=== PATIENT | female | born 1975 | race Caucasian/White ===

== ENCOUNTER 2020-11-28 12:00 | Outpatient (CLI) | payer BC, MEDICAID, SELFPAY | END 2020-11-28 12:01 | disposition home or self-care (01) | LOC: SLEEP 11-29 12:09 | PROVIDERS: PCP Family Medicine; Visit Provider Nurse Practitioner Family | DX: G47.10 Hypersomnia, unspecified (principal) | CPT/HCPCS: G0399 ==

== ENCOUNTER 2020-12-28 11:48 | Outpatient (CLI) | payer BC, MEDICAID, SELFPAY ==
--- NOTE | 2020-12-28 12:06 | XRR_ITS ---
PROCEDURE INFORMATION: Exam: XR Lumbosacral Spine, 4 or 5 Views Exam date and time: 12/28/2020 12:56 PM Age: 45 years old Clinical indication: Pain and injury or trauma; Other: Snow sledding; Blunt trauma (contusions or hematomas); Low back pain; Injury date: 12/26; Injury details: Thrown off sled; Prior surgery; Surgery type: Csection; Additional info: Lower back pain TECHNIQUE: Imaging protocol: XR of the lumbosacral spine, 4 or 5 views. COMPARISON: CR Lumbar Spine 2-3 views* [id number] 10/18/2017 4:39 PM FINDINGS: Bones/joints: Schmorl's nodes and marginal osteophytes. No acute bony injury or malalignment in the visualized lumbar spine. Gastrointestinal tract: Prominent stool. Organs: Tubal ligation. XR/XR lumbar spine min 4V [id number] IMPRESSION: No acute bony injury or malalignment in the visualized lumbar spine.
--- NOTE | 2020-12-28 12:07 | XRR_ITS ---
PROCEDURE INFORMATION: Exam: XR Sacrum and Coccyx, 2 or More Views Exam date and time: 12/28/2020 12:56 PM Age: 45 years old Clinical indication: Pain and injury or trauma; Other: Snow sledding; Blunt trauma (contusions or hematomas); Lumbago; Injury date: 12/26; Injury details: Thrown off sled; Prior surgery; Surgery type: Csection; Additional info: Lower back pain TECHNIQUE: Imaging protocol: XR of the sacrum and coccyx, 2 or more views. COMPARISON: No relevant prior studies available. FINDINGS: Bones/joints: No acute bony injury or malalignment. Intraperitoneal space: Punctate pelvic calcifications, presumably vascular in etiology. Organs: Tubal ligation. XR/XR sacrum coccyx min 2V 18800 IMPRESSION: No acute bony injury or malalignment.
== END 2020-12-28 11:49 | disposition home or self-care (01) ==
PROVIDERS: PCP Internal Medicine; Visit Provider Nurse Practitioner Family
DX: R58 Hemorrhage, not elsewhere classified (principal); M54.5 Low back pain
CPT/HCPCS: 72110; 72220

== ENCOUNTER 2021-12-21 05:33 | Emergency (ER) | payer BC, MEDICAID, SELFPAY ==
[2021-12-21 05:43] VITALS: BP 160/96; PULSE 90; RESP 18; TEMP 36.8; O2SAT 99; BMI 22.8
--- NOTE | 2021-12-21 06:09 | ED_ITS ---
HPI - General Adult General: Chief complaint: General Medical Stated complaint: High Blood Pressure Time Seen by Provider: 12/21/21 06:00 Source: patient Mode of arrival: ambulatory Limitations: no limitations History of Present Illness: 46-year-old female presents to the emergency room with complaints of elevated blood pressure. Given monitoring of blood pressure evidently she was given hydroxyzine to take as needed for blood pressure issues also has been treated for anxiety with anxiety. She been told to take hydroxyzine her blood pressure is high she had some conflict within her family last night evidently the police were involved with her blood pressure went up she gets blood pressure readings 190s at home an acquaintance encouraged her to come to the ER because of her elevated blood pressure. She is not having any significant chest discomfort she does have a little bit of a headache no difficulty speech swallowing states her vision is somewhat blurry. Onset (ago): hour(s) Severity: mild Relieving factors: none Exacerbating factors: none Associated symptoms: Deny chest pain, confusion, cough, diaphoresis, decreased appetite, dyspnea, fevers/chills, headache(s), malaise, nausea, rash, palpitations, seizures, short of breath, syncope, vomiting or weakness Treatments prior to arrival: none Review of Systems Const: Denies: malaise or diaphoresis ENMT: Denies: throat pain, ear or mastoid pain, nasal discharge or nasal congestion Card: Denies: chest pain, palpitations or syncope Resp: Denies: dyspnea GI: Denies: nausea or vomiting : Denies: flank pain, difficulty voiding, dysuria, urinary frequency or urinary urgency Skin/Breast: Denies: rash Neuro: Denies: headache(s) or confusion [facility] ED PFSH: Medical History (Updated 12/21/21 @ 07:11 by Catrachito Nieves DO) Anxiety Depression Hypertension Social History Smoking and tobacco status: current every day smoker Alcohol intake: current Physical Exam Const: COMMON NORMALS: no acute distress GENERAL APPEARANCE: cooperative and comfortable ORIENTATION/CONSCIOUSNESS: Yes awake, Yes oriented to person, Yes oriented to place and Yes oriented to time HENMT: COMMON NORMALS: normocephalic, atraumatic and hearing grossly normal bilaterally HEAD & SCALP: normocephalic and atraumatic Neck/C-Spine: COMMON NORMALS: no JVD Resp: COMMON NORMALS: normal respiratory effort, No retractions, No use of accessory muscles and clear to auscultation bilaterally AUSCULTATION: clear to auscultation bilaterally Cardio: COMMON NORMALS: no JVD, regular rate, regular rhythm and No murmurs present (Cardio) RATE: regular rate RHYTHM: regular rhythm GI: COMMON NORMALS: Soft to palpation and No hepatosplenomegaly present AUSCULTATION: Yes normoactive bowel sounds PALPATION: Yes Soft to palpation, No Tenderness to palpation present (GI), No Guarding due to palpation present (GI) and Yes No hepatosplenomegaly present Extremity: COMMON NORMALS: normal to inspection, capillary refill normal, no clubbing, cyanosis or edema, no calf tenderness and no pedal edema Neuro: SENSORIUM/ORIENTATION: Yes oriented to person, Yes oriented to place and Yes oriented to time Skin: COMMON NORMALS: no rashes or lesions noted GENERAL SKIN EXAM: no karen hes or lesions noted Course Vital Signs: Vital signs: Vital Signs Temperature 98.3 F 12/21/21 05:43 Pulse Rate 79 12/21/21 07:21 Respiratory Rate 16 12/21/21 07:21 Blood Pressure 164/112 12/21/21 07:21 Pulse Oximetry 99 12/21/21 07:21 [facility] - General Adult Medical Decision Making Patient has no signs of endorgan injury parent is doing well at this time continue the hydrochlorothiazide that she was given and also add amlodipine. On her medicine list [place] hydroxyzine however she did show me a prescription bottle of hydrochlorothiazide that she had been started on recently. Follow-up with your primary care doctor within the next week to reevaluate blood pressure. Medical Records I reviewed the patient's medical records. Lab Data I reviewed the patient's lab results. : 12/21/21 06:31 12/21/21 06:31 Laboratory Results WBC 10.4 10^3/uL (4.0-10.0) H 12/21/21 06:31 RBC 5.31 10^6/uL (4.1-5.3) H 12/21/21 06:31 Hgb 13.1 g/dL (11.5-15.3) 12/21/21 06:31 Hct 41.1 % (37.0-47.0) 12/21/21 06:31 MCV 77.4 fl (81-99) L 12/21/21 06:31 MCH 24.7 pg (28.0-34.0) L 12/21/21 06:31 MCHC 31.9 g/dL (30.0-36.0) 12/21/21 06:31 RDW 21.2 % (12.1-15.1) H 12/21/21 06:31 Plt Count 438 10^3/cmm (130-400) H 12/21/21 06:31 MPV 8.8 fL (7.4-10.4) 12/21/21 06:31 Neut % (Auto) 55.9 % 12/21/21 06:31 Lymph % (Auto) 31.7 % 12/21/21 06:31 Mitchell % (Auto) 9.6 % 12/21/21 06:31 Eos % (Auto) 1.7 % 12/21/21 06:31 Baso % (Auto) 0.8 % 12/21/21 06:31 Neut # (Auto) 5.81 10^3/uL (1.8-7.7) 12/21/21 06:31 Lymph # (Auto) 3.3 10^3/uL (0.8-4.8) 12/21/21 06:31 Mitchell # (Auto) 1.0 10^3/uL (0.2-0.9) H 12/21/21 06:31 Eos # (Auto) 0.2 10^3/uL (0.0-0.8) 12/21/21 06:31 Baso # (Auto) 0.1 10^3/uL (0.0-0.1) 12/21/21 06:31 Nucleated RBC % (auto) 0 % 12/21/21 06:31 Nucleated RBCs # 0.0 /100WBC 12/21/21 06:31 Sodium 136 mmol/L (136-145) 12/21/21 06:31 Potassium 3.9 mmol/L (3.5-5.1) 12/21/21 06:31 Chloride 99 mmol/L (98-107) 12/21/21 06:31 Carbon Dioxide 26 mmol/L (22-29) 12/21/21 06:31 Anion Gap 14.9 (5-19) 12/21/21 06:31 BUN 11 mg/dL (6-20) 12/21/21 06:31 Creatinine 0.6 mg/dL (0.5-0.9) 12/21/21 06:31 GFR Calculation 107.6 mL/min (90-130) 12/21/21 06:31 Glucose 88 mg/dL (65-115) 12/21/21 06:31 Calculated Osmolality 281 mOsm/kg (285-295) L 12/21/21 06:31 Calcium 9.2 mg/dL (8.5-10.5) 12/21/21 06:31 Total Bilirubin 0.3 mg/dL (0.15-1.2) 12/21/21 06:31 AST 33 U/L (0-32) H 12/21/21 06:31 ALT 31 U/L (0-33) 12/21/21 06:31 Alkaline Phosphatase 104 IU/L (35-105) 12/21/21 06:31 Total Protein 8.1 g/dL (6.6-8.7) 12/21/21 06:31 Albumin 4.6 g/dL (3.5-5.2) 12/21/21 06:31 Globulin 3.5 g/dL (1.3-4.6) 12/21/21 06:31 Discharge Plan Discharge Patient Disposition: Home Clinical Impression: Hypertension Condition: Stable Prescriptions: New amlodipine 5 mg tablet 5 mg PO DAILY Qty: 30 0RF No Action cefdinir 300 mg capsule 300 mg PO BID 7 Days Qty: 14 0RF ciprofloxacin-dexamethasone [Ciprodex] 0.3-0.1 % drops,suspension 4 drp otic (ear) BID 7 Days Qty: 7.5 0RF hydroxyzine HCl 50 mg tablet 50 mg PO DAILY 0RF Discharge Orders: Discharge ED (Routine); Ordered 12/21/21 Ordered By: Catrachito Nieves Referrals: Areli Avendaño DO [Primary Care Provider] - Discharge Diet: Usual diet Discharge Activity: Limit activity as instructed Patient Instructions: Opioid Safety Activity Restrictions/Additional Instructions: Avoid stimulants alcohol caffeine decongestants. Follow-up with your primary care doctor to reevaluate blood pressure next week. Start the amlodipine 5 mg once daily. Coding Level of Care Code ED Fire Protection Engineering Technician for Chg Fwd Exam Comprehensive
--- NOTE | 2021-12-21 06:10 | ECG_ITS ---
[facility] Test Date: 2021-12-21 Pat Name: Caren Ellis Department: Room: Gender: Female [employer] Department Manager: : 1975 Requested By: Catrachito Guillermo Order Number: [id number] Franklin MD: INGRID SANCHEZ Measurements Intervals [place] Rate: 83 P: 50 IN: 159 QRS: 14 QRSD: 92 T: 19 QT: 402 QTc: 475 Interpretive Statements SINUS RHYTHM POSSIBLE LEFT ATRIAL ENLARGEMENT [-0.1mV P-WAVE IN V1/V2] POSSIBLE RIGHT VENTRICULAR CONDUCTION DELAY [RSR (QR) IN V1/V2] MODERATE T-WAVE ABNORMALITY, CONSIDER ANTERIOR ISCHEMIA [-0.1+ mV T-WAVE IN V3/V4] No previous ECG available for comparison Electronically Signed On 12-21-2021 22:55:22 SENIOR ADMINISTRATOR SUPPORT by INGRID SANCEHZ [email or web address] medical [email or web address], [id number]
[2021-12-21 06:40] LABS: Basophils # 0.1 10^3/uL (0.0-0.1); Basophils % 0.8 %; Eosinophils # 0.2 10^3/uL (0.0-0.8); Eosinophils % 1.7 %; Hematocrit 41.1 % (37.0-47.0); Hemoglobin 13.1 g/dL (11.5-15.3); Lymphocytes # 3.3 10^3/uL (0.8-4.8); Lymphocytes % 31.7 %; Mean Corpuscular HGB Conc 31.9 g/dL (30.0-36.0); Mean Corpuscular Hemoglobin 24.7 pg (28.0-34.0); Mean Corpuscular Volume 77.4 fl (81-99); Mean Platelet Volume 8.8 fL (7.4-10.4); Monocytes % 9.6 %; Neutrophils # 5.81 10^3/uL (1.8-7.7); Neutrophils % 55.9 %; Nucleated Red Blood Cells % 0 %; Platelet Count 438 10^3/cmm (130-400); Red Blood Count 5.31 10^6/uL (4.1-5.3); Red Cell Distribution Width 21.2 % (12.1-15.1); White Blood Count 10.4 10^3/uL (4.0-10.0)
[2021-12-21] MEDS: hyDRALAzine 20 mg/mL INJ 1 mL 10 MG IM (06:55)
[2021-12-21] MEDS: amlodipine 5 mg Tablet PO (06:55)
[2021-12-21 07:00] LABS: Alanine Aminotransferase 31 U/L (0-33); Albumin Level 4.6 g/dL (3.5-5.2); Alkaline Phosphatase 104 IU/L (35-105); Anion Gap 14.9 (5-19); Aspartate Amino Transferase 33 U/L (0-32); Blood Urea Nitrogen 11 mg/dL (6-20); Calcium 9.2 mg/dL (8.5-10.5); Carbon Dioxide 26 mmol/L (22-29); Chloride 99 mmol/L (98-107); Globulin 3.5 g/dL (1.3-4.6); Glomerular Filtration Rate 107.6 mL/min (90-130); Glucose 88 mg/dL (65-115); Osmolality Calculated 281 mOsm/kg (285-295); Potassium 3.9 mmol/L (3.5-5.1); Sodium 136 mmol/L (136-145); Total Bilirubin 0.3 mg/dL (0.15-1.2); Total Protein 8.1 g/dL (6.6-8.7)
[2021-12-21 07:21] VITALS: BP 164/112; PULSE 79; RESP 16; O2SAT 99
== END 2021-12-21 07:23 | disposition home or self-care (01) ==
PROVIDERS: Emergency Provider Family Medicine; PCP Internal Medicine
DX: I10 Essential (primary) hypertension (principal); F17.210 Nicotine dependence, cigarettes, uncomplicated
CPT/HCPCS: 80053; 85025; 93005; 96372; 99283; J0360

== ENCOUNTER 2022-01-29 06:00 | Outpatient (RCR) | payer BC, MEDICAID, SELFPAY | END 2022-02-07 23:59 | disposition home or self-care (01) | LOC: SPT 06:00 | PROVIDERS: PCP Internal Medicine; Referring Provider Family Medicine; Visit Provider Family Medicine | DX: M54.50 Low back pain, unspecified (principal); I10 Essential (primary) hypertension | CPT/HCPCS: 97110; 97161; G0283 ==

== ENCOUNTER 2022-02-08 06:00 | Outpatient (RCR) | payer BC, MEDICAID, SELFPAY | END 2022-03-04 12:11 | disposition home or self-care (01) | LOC: SPT 06:00 | PROVIDERS: PCP Internal Medicine; Referring Provider Family Medicine; Visit Provider Family Medicine | DX: M54.50 Low back pain, unspecified (principal); W19.XXXD Unspecified fall, subsequent encounter | CPT/HCPCS: 97110; G0283 ==

== ENCOUNTER 2022-08-14 04:04 | Emergency (ER) | payer MEDICAID, SELFPAY ==
[2022-08-14 04:10] VITALS: BP 133/97; PULSE 119; RESP 18; TEMP 36.8; O2SAT 98; BMI 23.0
--- NOTE | 2022-08-14 04:15 | XRR_ITS ---
PROCEDURE INFORMATION: Exam: XR Left Shoulder Exam date and time: 08/14/2022 4:17 AM Age: 47 years old Clinical indication: Injury or trauma; Blunt trauma (contusions or hematomas); Patient HX: C/O left shoulder pain post fall this a. M. TECHNIQUE: Imaging protocol: Radiologic exam of the Left shoulder. Views: 2 or more views. COMPARISON: CR XR cervical spine 3V* [id number] 10/18/2017 4:39 PM FINDINGS: Bones/joints: There is a comminuted fracture of the left humeral neck with avulsion of the greater tuberosity. There is about 5 mm of displacement. Soft tissues: Normal. XR/XR shoulder LT min 2V* [id number] IMPRESSION: Comminuted mildly displaced fracture of the humeral neck.
--- NOTE | 2022-08-14 04:24 | W.ED.FALL ---
HPI - Fall General: Chief Complaint: Fall Stated Complaint: Injury Left Shoulders Time Seen by Provider: 08/14/22 04:09 Source: patient Mode of arrival: ambulatory Limitations: no limitations History of Present Illness: 47-year-old female who states that she tripped and fell the night over a box. States she landed right on her left shoulder she had left arm pain since then she has not any makeshift sling currently denies any other injuries denies hitting her head denies any neck pain. Associated symptoms-after fall: Denies abdominal pain, chest pain or headache(s) Review of Systems Const: Denies: fever(s), chills, body aches or change in appetite Eyes: Denies: blurry vision or eye discomfort ENMT: Denies: throat pain or dental pain Card: Denies: chest pain Resp: Denies: dyspnea GI: Denies: abdominal pain, nausea, vomiting or diarrhea : Denies: dysuria Musc: Reports: extremity pain Skin/Breast: Denies: rash Neuro: Denies: headache(s) Psych: Denies: depression Jamie/Lymph: Denies: easy bruising All/Imm: Denies: urticaria PFS ED PFSH: Medical History Allergic rhinitis due to allergen Anxiety Depression Hypertension Smokers' cough Social History Smoking and tobacco status: current every day smoker Alcohol intake: current Female Reproductive History: Date of last menstrual period: 08/01/22 Physical Exam Const: COMMON NORMALS: no acute distress, patient oriented x3 and healthy appearing HENMT: COMMON NORMALS: normocephalic and atraumatic HEAD & SCALP: normocephalic and atraumatic Eye: COMMON NORMALS: conjunctivae normal CONJUNCTIVA: Yes conjunctivae normal Neck/C-Spine: COMMON NORMALS: full ROM and supple Chest: COMMONS NORMALS: normal inspection of the chest Resp: COMMON NORMALS: normal respiratory effort Cardio: COMMON NORMALS: regular rate, regular rhythm and No murmurs present (Cardio) RATE: regular rate RHYTHM: regular rhythm GI: INSPECTION: Yes normal to inspection Extremity: NARRATIVE EXTREMITY EXAM: Tenderness to left proximal humerus on exam distal pulses intact Neuro: COMMON NORMALS: patient oriented x3, moves all extremities and no focal motor deficits Psych: COMMON NORMALS: mental status grossly normal, Normal thought process present and cooperative THOUGHT PROCESS: Normal thought process present Skin: COMMON NORMALS: no rashes or lesions noted and no wounds GENERAL SKIN EXAM: no rashes or lesions noted Course Vital Signs: Vital signs: Vital Signs Temperature 98.3 F 08/14/22 04:10 Pulse Rate 115 H 08/14/22 04:28 Respiratory Rate 20 H 08/14/22 04:28 Blood Pressure 143/102 08/14/22 04:28 Pulse Oximetry 97 08/14/22 04:28 Oxygen Delivery Me thod 08/14/22 04:10 MDM - Fall Medical Decision Making Patient presents here with proximal humerus fracture from a fall we will place in a sling. She also has some sclerosis of the bone we will get her follow-up for the fracture on the sclerosis we will prescribe her pain meds she is to follow-up in 2 [address] Wade. Discharge Plan Discharge Patient Disposition: Home Clinical Impression: Closed left humeral fracture Qualifiers: Encounter type: initial encounter Humerus Location: proximal Fracture morphology: other fracture Fracture alignment: nondisplaced Qualified Code(s): S42.295A - Other nondisplaced fracture of upper end of left humerus, initial encounter for closed fracture Condition: Stable Prescriptions: New hydrocodone-acetaminophen 5-325 mg tablet 1 tab PO Q6H PRN (Reason: pain) Qty: 14 0RF No Action losartan 25 mg tablet 25 mg PO DAILY hydroxyzine HCl 50 mg tablet 50 mg PO ONCE duloxetine 30 mg capsule,delayed release(DR/EC) 30 mg PO DAILY hydrochlorothiazide 12.5 mg tablet 12.5 mg PO DAILY aspirin [Adult Aspirin Regimen] 81 mg tablet,delayed release (DR/EC) 81 mg PO DAILY ibuprofen 800 mg tablet 800 mg PO Q8H PRN (Reason: Pain) bupropion HCl 150 mg tablet extended release 24 hr 150 mg PO DAILY Discharge Orders: Discharge ED (Routine); Ordered 08/14/22 Ordered By: Cheryl Alvarado Referrals: Slick Hutchinson MD [Primary Care Provider] - Davis Wade MD [Physician] - 1-3 days Discharge Diet: Advance as tolerated Discharge Activity: Resume usual activity Patient Instructions: Arm Fracture in Adults (ED), Opioid Safety Stand Alone Forms: Work/School Release Coding Level of Care Code ED Ui Software Engineer for Caitlin Schaffer
[2022-08-14 04:28] VITALS: BP 143/102; PULSE 115; RESP 20; O2SAT 97
[2022-08-14] MEDS: HYDROcodone-acetaminophen 5-325 mg Tablet 1 TAB PO (04:33)
--- NOTE | 2022-08-14 11:49 | DCPLANNER ---
Addendum entered by Arlene Horvath 10/30/22 11:09: Patient had a follow up appointment scheduled with ortho - patient did attend appointment. Addendum entered by Arlene Horvath 08/16/22 12:23: Patient has a follow up appointment scheduled for Friday, August 21, 2022 at 10:[address] Wade at ortho. Clinic will call patient with appointment information. Original Note: senior operations manager had message to schedule a follow up appointment for patient with ortho. senior operations manager sent patients information to the front office staff at ortho. Patients information will be printed and reviewed. Clinic will call patient with appointment information.
== END 2022-08-14 04:45 | disposition home or self-care (01) ==
PROVIDERS: Emergency Provider Emergency Medicine; PCP Family Medicine
DX: S42.295A Other nondisplaced fracture of upper end of left humerus, initial encounter for closed fracture (principal); I10 Essential (primary) hypertension; F17.210 Nicotine dependence, cigarettes, uncomplicated; W18.09XA Striking against other object with subsequent fall, initial encounter; Z79.82 Long term (current) use of aspirin
CPT/HCPCS: 73030; 99283

== ENCOUNTER 2022-09-13 14:42 | Outpatient (CLI) | payer MEDICAID, SELFPAY ==
--- NOTE | 2022-09-13 15:00 | CT_ITS ---
WS: [id number] Exam: CT shoulder LT wo con* [id number] Date/Time of Exam: 09/13/2022 2:56 PM Reason For Exam: left shoulder injury DLP: 630.[address] scans at [facility] use at least one of these dose optimization techniques: automated e xposure control; mA and/or kV adjustment per patient size (includes targeted exams where dose is matc hed to clinical indication); or iterative reconstruction. The left shoulder is evaluated in the axial plane with sagittal coronal reformatted images. There is a comminuted fracture of the surgical neck and head of the humerus. Articular relationships remain in tact. No significant displacement of fracture fragments. Bone infarct in the upper humeral metaphysis . The glenoid is preserved. The scapula is otherwise intact. Myofascial structures are unremarkable. No joint effusion. CT/CT shoulder LT wo con* [id number] IMPRESSION: 1. Comminuted fracture of the surgical neck and head of the humerus with very m inimal displacement. Articular relationships remain intact.
== END 2022-09-13 14:43 | disposition home or self-care (01) ==
LOC: RAD 14:42
PROVIDERS: PCP Family Medicine; Visit Provider Orthopaedic Surgery
DX: S42.212A Unspecified displaced fracture of surgical neck of left humerus, initial encounter for closed fracture (principal)
CPT/HCPCS: 73200

== ENCOUNTER 2022-11-15 12:01 | Emergency (ER) | payer MEDICAID, SELFPAY ==
[2022-11-15 12:17] VITALS: BP 129/87; PULSE 93; RESP 18; TEMP 36.4; O2SAT 97; BMI 23.3
--- NOTE | 2022-11-15 13:56 | W.ED.DIZZY ---
HPI - Dizziness General: Chief Complaint: Dizziness Stated Complaint: cold sweat,nauseas Time Seen by Provider: 11/15/22 13:56 Source: patient and family () History of Present Illness: HPI Narrative: This 47-year-old lady with a history of vertigo, presents to the ER with vertigo that started this morning. She got up around 6 AM and the whole room was spinning around. There was associated dizziness, nausea and cold sweats. She has had episodes like this in the past. She denies fever, chest pain, shortness of breath or dysuria. She is clinically stable. Associated symptoms: Denies chest pain, chills or headache(s) Review of Systems Const: Denies: chills, body aches or change in appetite Eyes: Denies: change in vision or eye discharge ENMT: Denies: throat pain or dental pain Card: Reports: lightheadedness; Denies: chest pain GI: Denies: diarrhea : Denies: dysuria Musc: Denies: neck pain or back pain Neuro: Reports: vertigo; Denies: headache(s) or weakness in extremities Psych: Denies: depression Jamie/Lymph: Denies: easy bruising All/Imm: Denies: urticaria, tongue swelling or facial swelling PFSH ED PFSH: Medical History Allergic rhinitis due to allergen Anxiety Depression Hypertension Smokers' cough Social History Smoking and tobacco status: former smoker Alcohol intake: current Female Reproductive History: Date of last menstrual period: 08/01/22 Physical Exam Const: COMMON NORMALS: no acute distress, patient oriented x3, no limitations and alert HENMT: COMMON NORMALS: normocephalic HEAD & SCALP: normocephalic Eye: COMMON NORMALS: EOMs intact bilaterally Neck/C-Spine: COMMON NORMALS: full ROM and supple Chest: COMMONS NORMALS: normal inspection of the chest Resp: COMMON NORMALS: normal respiratory effort, No retractions, No use of accessory muscles and clear to auscultation bilaterally AUSCULTATION: clear to auscultation bilaterally Cardio: COMMON NORMALS: regular rate, regular rhythm and No murmurs present (Cardio) RATE: regular rate RHYTHM: regular rhythm GI: COMMON NORMALS: Normal to inspection, nondistended, normoactive bowel sounds present and non-tender : COMMON NORMALS: Yes no CVA tenderness BLADDER/KIDNEY EXAM: Yes no CVA tenderness Back/Pelvis: COMMON NORMALS: no CVA tenderness and no thoracic nor lumbar tenderness Extremity: GENERAL: Yes normal exam except as noted Neuro: COMMON NORMALS: patient oriented x3 and no focal motor deficits SENSORIUM/ORIENTATION: Yes alert Psych: COMMON NORMALS: mental status grossly normal and cooperative Course Vital Signs: Vital signs: Vital Signs Temperature 97.6 F 11/15/22 12:17 Pulse Rate 68 11/15/22 17:23 Respiratory Rate 18 11/15/22 17:23 Blood Pressure 94/75 11/15/22 17:23 Pulse Oximetry 98 11/15/22 17:23 Oxygen Delivery Me thod 11/15/22 12:17 MDM - Dizziness Medical Decision Making Medical decision making: Besides vertigo, which patient has a prior history of, she seems to be clinically stable. Clinical exam is unremarkable and completed blood tests are unremarkable too. IV fluids, Reglan and meclizine administered. On reevaluation, patient was sitting up in bed, feeling a lot better and wanting to go home. At this time, there is no indication to admit her. This is vertigo that she has had multiple times in the past. She was given a prescription for meclizine and advised to rest and maintain adequate fluid intake. In addition, she was given a work note since she was supposed to go to work today. Return instructions provided. Lab Data 11/15/22 14:31 11/15/22 14:31 Laboratory Results WBC 12.2 10^3/uL (4.0-10.0) H 11/15/22 14:31 RBC 5.52 10^6/uL (4.1-5.3) H 11/15/22 14:31 Hgb 16.4 g/dL (11.5-15.3) H 11/15/22 14:31 Hct 49.5 % (37.0-47.0) H 11/15/22 14:31 MCV 89.7 fl (81-99) 11/15/22 14:31 MCH 29.7 pg (28.0-34.0) 11/15/22 14:31 MCHC 33.1 g/dL (30.0-36.0) 11/15/22 14:31 RDW 16.0 % (12.1-15.1) H 11/15/22 14:31 Plt Count 431 10^3/cmm (130-400) H 11/15/22 14:31 MPV 9.0 fL (7.4-10.4) 11/15/22 14:31 Neut % (Auto) 71.2 % 11/15/22 14:31 Lymph % (Auto) 20.4 % 11/15/22 14:31 Edgar % (Auto) 6.8 % 11/15/22 14:31 Eos % (Auto) 0.7 % 11/15/22 14:31 Baso % (Auto) 0.5 % 11/15/22 14:31 Neut # (Auto) 8.66 10^3/uL (1.8-7.7) H 11/15/22 14:31 Lymph # (Auto) 2.5 10^3/uL (0.8-4.8) 11/15/22 14:31 Edgar # (Auto) 0.8 10^3/uL (0.2-0.9) 11/15/22 14:31 Eos # (Auto) 0.1 10^3/uL (0.0-0.8) 11/15/22 14:31 Baso # (Auto) 0.1 10^3/uL (0.0-0.1) 11/15/22 14:31 Nucleated RBC % (auto) 0 % 11/15/22 14:31 Nucleated RBCs # 0.0 /100WBC 11/15/22 14:31 Sodium 136 mmol/L (136-145) 11/15/22 14:31 Potassium 4.4 mmol/L (3.5-5.1) 11/15/22 14:31 Chloride 97 mmol/L (98-107) L 11/15/22 14:31 Carbon Dioxide 27 mmol/L (22-29) 11/15/22 14:31 Anion Gap 16.4 (5-19) 11/15/22 14:31 BUN 8 mg/dL (6-20) 11/15/22 14:31 Creatinine 0.7 mg/dL (0.5-0.9) 11/15/22 14:31 GFR Calculation 89.7 mL/min (90-130) L 11/15/22 14:31 Glucose 107 mg/dL (65-115) 11/15/22 14:31 Calculated Osmolality 281 mOsm/kg (285-295) L 11/15/22 14:31 Calcium 8.2 mg/dL (8.5-10.5) L 11/15/22 14:31 Total Bilirubin 0.5 mg/dL (0.15-1.2) 11/15/22 14:31 AST 18 U/L (0-32) 11/15/22 14:31 ALT 33 U/L (0-33) 11/15/22 14:31 Alkaline Phosphatase 134 U/L (35-105) H 11/15/22 14:31 Total Protein 7.9 g/dL (6.6-8.7) 11/15/22 14:31 Albumin 4.5 g/dL (3.5-5.2) 11/15/22 14:31 Globulin 3.4 g/dL (1.3-4.6) 11/15/22 14:31 Urine Color Yellow (Yellow) 11/15/22 15:44 Urine Appearance Clear (CLEAR) 11/15/22 15:44 Urine pH 7 (5-7) 11/15/22 15:44 Ur Specific [place] 1.015 (1.005-1.030) 11/15/22 15:44 Urine Protein Neg (Negative) 11/15/22 15:44 Urine Glucose (UA) Norm (Normal) 11/15/22 15:44 Urine Ketones Negative (Negative) 11/15/22 15:44 Urine Blood Neg (Negative) 11/15/22 15:44 Urine Nitrate Negative (Negative) 11/15/22 15:44 Urine Bilirubin Neg (Negative) 11/15/22 15:44 Urine Urobilinogen Neg mg/dL (Negative) 11/15/22 15:44 Ur Leukocyte Esterase Negative (Negative) 11/15/22 15:44 Discharge Plan Discharge Patient Disposition: Home Clinical Impression: Vertigo Condition: Stable Prescriptions: New meclizine 25 mg tablet 25 mg PO TID PRN (Reason: dizziness, vertigo) Qty: 30 0RF No Action losartan 25 mg tablet 25 mg PO DAILY hydroxyzine HCl 50 mg tablet 25 - 50 mg PO DAILY (DME) [facility] See Rx Instructions .Route .MEDSUPPLY Qty: 1 0RF Rx Instructions: As directed hydrocodone-acetaminophen 5-325 mg tablet 1 tab PO Q6H PRN (Reason: pain) 7 Days Qty: 30 0RF duloxetine 30 mg capsule,delayed release(DR/EC) 30 mg PO DAILY hydrochlorothiazide 12.5 mg tablet 12.5 mg PO DAILY ibuprofen 800 mg tablet 800 mg PO Q8H PRN (Reason: Pain) amitriptyline 25 mg tablet 25 mg PO BEDTIME PRN (Reason: Sleep) lidocaine 5 % adhesive patch,medicated 1 patch transdermal Q24H PRN (Reason: Pain) Discharge Orders: Discharge ED (Routine); Ordered 11/15/22 Ordered By: Yaneli Roe Referrals: Slick Hutchinson MD [Primary Care Provider] - Discharge Diet: Usual diet Discharge Activity: Resume usual activity Activity Restrictions/Additional Instructions: Maintain adequate hydration. Take meclizine as needed for dizziness or vertigo. Follow-up with your primary care physician in 3 to 5 days for reevaluation. Return with new or worsening symptoms. Stand Alone Forms: Work/School Release Coding Level of Care Code ED Insurance Territory Manager for Henryg Fwd Exam Comprehensive
[2022-11-15 15:12] LABS: Basophils # 0.1 10^3/uL (0.0-0.1); Basophils % 0.5 %; Eosinophils # 0.1 10^3/uL (0.0-0.8); Eosinophils % 0.7 %; Hematocrit 49.5 % (37.0-47.0); Hemoglobin 16.4 g/dL (11.5-15.3); Lymphocytes # 2.5 10^3/uL (0.8-4.8); Lymphocytes % 20.4 %; Mean Corpuscular HGB Conc 33.1 g/dL (30.0-36.0); Mean Corpuscular Hemoglobin 29.7 pg (28.0-34.0); Mean Corpuscular Volume 89.7 fl (81-99); Monocytes # 0.8 10^3/uL (0.2-0.9); Monocytes % 6.8 %; Neutrophils # 8.66 10^3/uL (1.8-7.7); Neutrophils % 71.2 %; Nucleated Red Blood Cells % 0 %; Platelet Count 431 10^3/cmm (130-400); Red Blood Count 5.52 10^6/uL (4.1-5.3); White Blood Count 12.2 10^3/uL (4.0-10.0)
[2022-11-15] MEDS: metoclopramide 5 mg/mL SDV 2 mL 10 MG IVP (15:13)
[2022-11-15] MEDS: sodium chloride 0.9% 1,000 ML 999 ML IV (15:14)
[2022-11-15] MEDS: meclizine 25 mg tablet 50 MG PO (15:18)
[2022-11-15 15:19] VITALS: BP 94/75; PULSE 68; O2SAT 98
[2022-11-15 15:21] LABS: Alanine Aminotransferase 33 U/L (0-33); Albumin Level 4.5 g/dL (3.5-5.2); Alkaline Phosphatase 134 U/L (35-105); Anion Gap 16.4 (5-19); Aspartate Amino Transferase 18 U/L (0-32); Blood Urea Nitrogen 8 mg/dL (6-20); Calcium 8.2 mg/dL (8.5-10.5); Carbon Dioxide 27 mmol/L (22-29); Chloride 97 mmol/L (98-107); Creatinine Clr Calc Pharmacy 107.2621; Globulin 3.4 g/dL (1.3-4.6); Glomerular Filtration Rate 89.7 mL/min (90-130); Glucose 107 mg/dL (65-115); Osmolality Calculated 281 mOsm/kg (285-295); Potassium 4.4 mmol/L (3.5-5.1); Sodium 136 mmol/L (136-145); Total Bilirubin 0.5 mg/dL (0.15-1.2); Total Protein 7.9 g/dL (6.6-8.7)
[2022-11-15 15:55] LABS: Add Urine Microscopic? NO
[2022-11-15 15:56] LABS: Bilirubin Urine Neg (Negative); Blood Urine Neg (Negative); Glucose Urine UA Norm (Normal); Ketones Urine Negative (Negative); Leukocyte Esterase Urine Negative (Negative); Nitrate Urine Negative (Negative); Protein Urine Neg (Negative); Specific Gravity, Urine 1.015 (1.005-1.030); Urine Appearance Clear (CLEAR); Urine Color Yellow (Yellow); Urobilinogen Urine Neg (Negative); pH Urine 7 (5-7)
[2022-11-15 15:58] LABS: Charge for UA Resulting for Rev
[2022-11-15 17:23] VITALS: BP 94/75; PULSE 68; RESP 18; O2SAT 98
== END 2022-11-15 17:25 | disposition home or self-care (01) ==
PROVIDERS: Emergency Provider Family Medicine; PCP Family Medicine
DX: R42 Dizziness and giddiness (principal); I10 Essential (primary) hypertension; Z87.891 Personal history of nicotine dependence
CPT/HCPCS: 80053; 81003; 85025; 96374; 99284; J2765; J7030; J8597

== ENCOUNTER → 2022-11-20 10:23 | Outpatient (BNVA) | payer MEDICAID, SELFPAY | PROVIDERS: PCP Family Medicine; Visit Provider Registered Nurse Neonatal Intensive Care | DX: R50.9 Fever, unspecified (principal); B34.9 Viral infection, unspecified | CPT/HCPCS: 87400 ==

== ENCOUNTER → 2023-02-18 09:59 | Outpatient (BNVA) | payer MEDICAID, SELFPAY | PROVIDERS: PCP Family Medicine; Visit Provider Orthopaedic Surgery | DX: S42.202A Unspecified fracture of upper end of left humerus, initial encounter for closed fracture (principal); X58.XXXA Exposure to other specified factors, initial encounter | CPT/HCPCS: 73030 ==

== ENCOUNTER → 2023-03-18 09:17 | Outpatient (BNVA) | payer MEDICAID, SELFPAY | PROVIDERS: PCP Family Medicine; Visit Provider Orthopaedic Surgery | DX: S89.91XA Unspecified injury of right lower leg, initial encounter (principal); W00.0XXA Fall on same level due to ice and snow, initial encounter; M25.461 Effusion, right knee | CPT/HCPCS: 73560; 73565 ==

== ENCOUNTER 2023-03-27 08:43 | Outpatient (CLI) | payer MEDICAID, SELFPAY ==
--- NOTE | 2023-03-27 08:55 | MR_ITS ---
WS: [id number] MRI RIGHT KNEE NONCONTRAST TECHNIQUE: Axial PD, coronal PD fat sat, coronal PD, sagittal PD, and sagittal PD fat-sat images obta ined. CLINICAL INFORMATION: ACUTE TEAR OF MEDIAL MENISCUS OF R KNEE COMPARISON: None. FINDINGS: Distal quadriceps and patella tendons are intact. Normal ACL and PCL. Hypertrophic patella. Mild chronic thinning of the medial meniscus slight peripheral extrusion of the medial meniscus. Radial type tear involving the lateral meniscus extending to the meniscal root. Full-thickness cartil age defect involving the lateral femoral condyle. Moderate suprapatellar effusion. Grade III chondrom alacia patella with cartilage fissuring. No subchondral edema. Normal medial and lateral patellar ret inaculum. Soft tissue edema about the knee. Normal popliteal fossa. Normal medial and lateral collateral ligaments. IMPRESSION: 1. Normal ACL and PCL. 2. Moderate supra patellar effusion. 3. Radial type tear involving the lateral meniscus at the meniscal root. 4. Associated full-thickness cartilage defect involving the lateral femoral condyle at the level of the meniscal tear. 5. Grade III chondromalacia patella. No subchondral edema. 6. Medial and lateral collateral ligaments are intact. 7. Subcutaneous soft tissue edema worse about the lateral knee. Outbridge grading: grade III: partial-thickness cartilage loss with focal ulceration
== END 2023-03-27 08:44 | disposition home or self-care (01) ==
LOC: RAD 08:47
PROVIDERS: PCP Family Medicine; Visit Provider Physician Assistant
DX: S83.241A Other tear of medial meniscus, current injury, right knee, initial encounter (principal); X58.XXXA Exposure to other specified factors, initial encounter; M25.461 Effusion, right knee; M22.41 Chondromalacia patellae, right knee
CPT/HCPCS: 73721

== ENCOUNTER 2023-04-01 09:39 | Outpatient (CLI) | payer MEDICAID, SELFPAY ==
--- NOTE | 2023-04-01 10:39 | XRR_ITS ---
PROCEDURE INFORMATION: Exam: XR Lumbosacral Spine Exam date and time: 04/01/2023 11:07 AM Age: 47 years old Clinical indication: Low back pain; Additional info: Vertebrogenic low back pain, please comment on presence or absence of spinal instability TECHNIQUE: Imaging protocol: Radiologic exam of the lumbosacral spine. Views: 2 or 3 views. COMPARISON: CR XR lumbar spine min 4V [id number] 12/28/2020 12:40 PM FINDINGS: Bones/joints: Minimal productive degenerative endplate changes throughout the spine. Soft tissues: Unremarkable. Vasculature: Scattered vascular calcifications. XR/XR lumbar spine f/e only [id number] IMPRESSION: 1. Minimal productive degenerative endplate changes throughout the spine. 2. Scattered vascular calcifications.
== END 2023-04-01 09:40 | disposition home or self-care (01) ==
PROVIDERS: PCP Family Medicine; Visit Provider Nurse Practitioner
DX: M54.51 Vertebrogenic low back pain (principal)
CPT/HCPCS: 72120

== ENCOUNTER 2023-06-25 09:50 | Day surgery (SDC) | payer MEDICAID, SELFPAY ==
[2023-06-24 08:56] VITALS: BMI 23.9
[2023-06-25] VITALS (11 sets, daily range): BP systolic 90–134; BP diastolic 65–90; PULSE 82–99; RESP 14–20; TEMP 36.1–36.7; O2SAT 93–99
[2023-06-25 10:49] LABS: OR HCG Qualitative Urine Negative (Negative)
[2023-06-25] MEDS: sodium chloride 0.9% 1,000 ML 30 ML IV (11:19)
[2023-06-25] MEDS: ketorolac 60 mg/2 mL INJ 30 MG IVP (11:19)
[2023-06-25] MEDS: acetaminophen 1,000 MG/100 ML PIGGYBACK 400 MG IV (11:20)
[2023-06-25] MEDS: vancomycin 1,500 MG/300 ML PIGGYBACK 200 MG IV (11:38)
[2023-06-25 11:54] LABS: Anion Gap 14.4 (5-19); Blood Urea Nitrogen 11 mg/dL (6-20); Calcium 8.8 mg/dL (8.5-10.5); Carbon Dioxide 27 mmol/L (22-29); Chloride 100 mmol/L (98-107); Creatinine Clr Calc Pharmacy 108.4001; Glomerular Filtration Rate 89.7 mL/min (90-130); Glucose 87 mg/dL (65-115); Osmolality Calculated 283 mOsm/kg (285-295); Potassium 4.4 mmol/L (3.5-5.1); Sodium 137 mmol/L (136-145)
--- NOTE | 2023-06-25 12:30 | W.PM.OPSUD ---
Surgery/Procedure H&P Update DATE OF PROCEDURE: June 25, 2023 DATE H&P PERFORMED: 06/05/23 CHANGES TO PREVIOUS DOCUMENTATION: None. No change in HPI from office visit on 06/05/2023. Patient has a right knee lateral meniscus tear. There does appear to be a radial tear near the root we will inspect the root for its integrity and she understands this could be a partial lateral meniscectomy versus repair. All questions answered. She elects proceed with surgical intervention. PREOP DIAGNOSIS: Right knee lateral meniscus tear PRIMARY INDICATION FOR PROCEDURE: Right knee lateral meniscus tear PLANNED PROCEDURE: Operation Date: 06/25/23 11:40 Proposed Procedures p RIGHT KNEE DIAGNOSTIC AND SURGICAL ARTHROSCOPY PARTIAL LATERAL MENISCECTOMY VERSUS REPAIR [id number],S83.289A(Right) - Seymour Rosen DO
[2023-06-25] MEDS: lidocaine-epi 2% 20 mL INJ 40 ML INJECTION (13:06)
--- NOTE | 2023-06-25 13:43 | P.OP_ITS ---
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 Patient has failed conservative treatment who has been worked up for right??knee?pain in the outpatient setting. MRI findings consistent with tear of lateral meniscus and lateral compartment cartilage defect/chondromalacia. talked in the office about treatment options patient would like to proceed with a right?knee?diagnostic and surgical arthroscopy with partial lateral meniscectomy versus repair. patient understand the ins and outs of the procedure the risk benefits complication alternatives to treatment options.? Understanding risk of surgery they agree to proceed with surgical intervention.? Patient understand this may not provide patient with complete symptomatic relief of? pain as patient does have some underlying arthritis.? Understanding this and patient agree to proceed with surgical intervention all questions answered. Procedure: Patient seen and evaluated in the preoperative holding area.? Consent was reviewed and signed with patient.? Correct extremity was then marked.? Patient seen evaluated Anesthesia Department once cleared for surgery patient was taken back to the operative suite.? Patient was transported onto the OR table in supine position.? All bony prominences well-padded patient was appropriate secured to the bed.? Once appropriately anesthetized a nonsterile tourniquet was applied to the right thigh.? The right lower extremity was then prepped and draped in standard orthopedic fashion.? Final timeout performed.? Patient received appropriate preoperative antibiotics. Patient received local anesthetic of lidocaine with epinephrine into the joint as well as around the portal sites.? Esmarch tourniquet was used exsanguinate the right lower extremity tourniquet was insufflated 250 mmHg. A standard 2 portal vertical incision diagnostic and surgical arthroscopy of the right?knee?was performed in standard fashion.? Small stab incision made in the inferolateral portal introduced trocar and arthroscope into the suprapatellar pouch.? Suprapatellar pouch was subsequently visualized and found to have significant synovitis but no loose bodies.? Patient had noticeable significant inflamed infrapatellar fat pad and thickening hypertrophic within the patellofemoral compartment.? Patient did have findings consistent with a thickened medial plica that had a small indentation on the medial femoral condyle. The plica was excised with arthroscopic shaver. ?The medial gutter was free of loose bodies I then introduced the arthroscope into the medial compartment.? Within the medial compartment I then established my inferior medial working portal utilizing spinal needle outside in technique.? Once established I then visualized our articular cartilage of the medial compartment with a valgus stress.? Patient was found to have grade 1 c hondromalacia throughout the medial compartment.? Next I inspected the meniscus.? With an arthroscopic probe was utilized to visual? all aspects of the meniscus.? Meniscal root was found to be intact.? Meniscus was found to be intact. Next, I then performed a synovectomy of the medial compartment with arthroscopic shaver and thermal wand.? This completed medial compartment work. Next a introduced the arthroscope to the intercondylar notch.? PCL and ACL were intact. patient had significant thickening of the infrapatellar fat pad spanning into the medial and lateral compartments.? I then performed an extensive synovectomy with the arthroscopic shaver of the patellofemoral medial and lateral compartments as well as the intercondylar notch. Advance the?scope?into the retrocruciate space and no loose bodies were found. Next I introduced the arthroscope into the lateral compartment the lateral compartment was found to have grade 3 chondromalacia.? There was a large area of ulceration along the medial femoral condyle along the weightbearing surface there was multiple fissuring and delamination's of the lateral femoral condyle. This went to a grade III chondromalacia. As result I then utilized arthroscopic shaver and thermal wand to perform a lateral compartment chondroplasty to remove all unstable articular surfaces of cartilage to stable articular tissue and did utilize a thermal wand to gently anneal the edges to seal them up. Lateral meniscus was found to be intact.? I utilized the arthroscopic probe and thoroughly evaluated the lateral meniscal root where there was a possible radial tear near. There was no evidence of a radial tear or detachment of the meniscal root there was small amount of synovitis and scar tissue along the lateral border of the ACL in the similar region on the MRI I suspect this was read as the possible area of meniscal tear there was no evidence of meniscal tear and as a result given the root was intact this was left alone. Determined the lateral compartment chondromalacia was the source of this patient's pain. This completed my work of the lateral compartment and then performed a synovectomy of the lateral compartment.? Next of the arthroscope was placed into the lateral gutter and this was free of loose bodies.? Finally I reintroduced the arthroscope into the patellofemoral compartment.? The patellofemoral was found to have grade 2 chondromalacia of the patellofemoral compartment.? At this point I utilized arthroscopic shaver as well as thermal wand to perform extensive synovectomy of the patellofemoral compartment. This completed my work of the patellofemoral space.? I then switch my portal sites to the medial working portal.? Completed the rest of my synovectomy and the rest of my examination arthroscopy was normal. All fluid was suctioned from the joint.? ?All instruments were withdrawn.? Portal sites were closed with interrupted nylon suture.? portal sites were then covered with with Xeroform 4 x 4's ABD Curlex and Guillermo wrap.? Patient was then subsequently awakened from anesthesia and taken to PACU in stable condition. Disposition: Patient taken to PACU in stable condition recovering well.? Will receive appropriate discharge structure as well as pain medication postoperatively as well as? DVT prophylaxis.we will have patient follow-up with us in the office in 2 weeks.? We will weightbearing as tolerated to the right lower extremity.? Patient understands and agrees with current plan.? All questions answered.
--- NOTE | 2023-06-25 13:46 | PM.OP2 ---
Brief Operative Note Date of procedure: 06/25/23 Pre-op diagnosis: Right knee Lateral meniscus tear Post-op diagnosis: other (Right knee Lateral compartment Chondromalacia and extensive synovitis) Procedure Done: Right Knee diagnostic and arthroscopy lateral compartment chondroplasia and extensive synovectomy Surgeon: Seymour Rosen Estimated blood loss (mL): 5 Complications: none Post-op Plan: Pt?in stable condition transported to PACU.? Right knee weight-bear as tolerated. Use crutches as needed. follow all discharge instructions.? Pain medication and nausea medication sent to pharmacy and take as needed. Follow DVT prophylaxis protocol by taking? 81mg aspirin only.? Keep dressing on for 72 hours then you can remove and clean with soap and water, but do not submerge in water. follow up at orthopedic clinic in 2 weeks. Condition: stable Disposition: PACU Coding Level of Care Code Acute Code for Caitlin Schaffer
--- NOTE | 2023-06-25 13:50 | PM.PACU ---
PACU note Narrative: Patient is a 47-year-old female that just had procedural right kne diagnostic and arthroscopy with lateral compartment chondroplasia and extensive synovectomy. She is stable and transferred to PACU. She is alert, awake and responsive.? Pain is under control.? Postop dressing is dry and in place.? Perfusion to toes and cap refill less than 2 seconds. he can wiggle toes.? Normal sensation to foot.? Plantar flexion and dorsal flexion normal.? She is able to perform straight leg raise. Exam: awake Disposition: discharged
--- NOTE | 2023-06-25 13:53 | P.ANESASSM_ITS ---
Pre-Anesthetic Assessment Height/Weight: Height 1.75 m Weight 73.482 kg Temp Pulse Resp BP Pulse Ox O2 Del Method O2 Flow Rate 97.4 F L 82 16 126/90 99 Room Air 6 06/25/23 10:38 06/25/23 10:38 06/25/23 10:38 06/25/23 10:38 06/25/23 10:38 06/25/23 10:40 06/25/23 13:43 Preop Diagnosis: Right knee lateral meniscus tear Operation Date: 06/25/23 11:40 Proposed Procedures p RIGHT KNEE DIAGNOSTIC AND SURGICAL ARTHROSCOPY PARTIAL LATERAL MENISCECTOMY VERSUS REPAIR 84074,S83.289A(Right) - Seymour Republic, DO Familial anesthetic complications: none Was Beta Emelia taken within 24 hours: N/A Was Clonidine taken within 24 hours: N/A Last intake: Intake Last Liquid Date 06/24/23 Last Liquid Time 18:00 Last Solid Date 06/24/23 Last Solid Time 18:00 Social Alcohol and Tobacco Exam alert, oriented x 3 and regular rate & rhythm Airway Submandibular: within normal limits Cervical ROM: within normal limits Mallampati: Class I Dentition: false Pulmonary Chronic Obstructive Pulmonary Disease CV/HEM Hypertension Neuropsych Anxiety and Depression Anesthetic Plan ASA status: 3 Anesthesia: General and Regional (specify below) (right adductor blk) Medications/Allergies Home Medications Medication Instructions Recorded Confirmed Last Taken Type duloxetine 30 mg capsule,delayed 30 mg PO DAILY 04/16/22 06/24/23 06/25/23 06:00 History release hydrochlorothiazide 12.5 mg tablet 12.5 mg PO DAILY 04/16/22 06/24/23 06/25/23 09:00 History hydroxyzine HCl 50 mg tablet 100 mg PO DAILY 05/14/22 06/24/23 06/24/23 20:00 History losartan 25 mg tablet 25 mg PO DAILY 05/14/22 06/24/23 06/24/23 History amitriptyline 25 mg tablet 25 mg PO BEDTIME PRN Sleep 11/15/22 06/24/23 06/24/23 20:00 History lidocaine 5 % topical patch 1 patch transdermal Q24H PRN Pain 11/15/22 06/24/23 06/22/23 History hydrocodone 10 mg-acetaminophen 1 tab PO DAILY PRN Pain 06/05/23 06/24/2323 History 325 mg tablet aspirin 81 mg tablet,delayed 81 mg PO DAILY 14 days #14 tabs 06/25/23 Unknown Rx release hydrocodone 5 mg-acetaminophen 325 1 tab PO Q6H PRN pain 5 days #20 06/25/23 Unknown Rx mg tablet tabs ondansetron 4 mg disintegrating 4 mg PO DAILY PRN nausea and 06/25/23 Unknown Rx tablet vomiting 3 days #9 tabs Allergies Allergy/AdvReac Type Severity Reaction Status Date / Time Penicillins Allergy ALGY-Hives Verified 06/05/23 14:03 Current Medications Generic Name Dose Route Start Last Admin Trade Name Freq PRN Reason Stop Dose Admin Sodium Chloride 1,000 mls @ 30 mls/hr 06/25/23 10:15 06/25/23 11:19 Sodium Chloride 0.9% IV 06/26/23 10:14 30 mls/hr .Q24H MOY Administration PFSH Anesthesia Medical History Allergic rhinitis due to allergen Anxiety Depression Hypertension Smokers' cough Social History (Updated 06/05/23 @ 14:02 by Ana M Leone LPN) Smoking and tobacco status: current every day smoker Alcohol intake: current Alcohol intake frequency: 0-2 Drinks per Day Female Reproductive History Date of last menstrual period: 05/29/23 Data Anesthesia 06/25/23 11:00 BMP 06/25/23 11:00 Sodium 137 Potassium 4.4 Chloride 100 Carbon Dioxide 27 BUN 11 Creatinine 0.7 Glucose 87 Calcium 8.8 Cardiac Studies: No Data to Display Anesthesia Procedures Nerve Block Nerve Block 1: Main Anesthesia: general anesthesia Time Out Performed: Yes Consent: requested by attending/covering physician, from patient, risks and benefits reviewed and patient agrees to proceed Nerve block location: adductor canal (right) Anesthesia monitors applied: pulse oximetry, EKG, BP cuff and oxygen Nerve block position: supine Anesthetic Used: ropivicaine 0.5% Amount of anesthesia used (mL): 20 Ultrasound used to: recognize landmarks Nerve Stimulator Used?: No Interscalene/Femoral BLK: 4 stimuplex 21 g needle used for position and inplane approach Injection: neg aspiration of heme Patient Tolerated Procedure: well Complications: none
--- NOTE | 2023-06-25 14:37 | ANE.PACU2 ---
Inpatient post-anesthesia follow up: Airway intact: Yes Vital signs: Temperature 97.6 F Pulse Rate 91 Respiratory Rate 15 Blood Pressure 103/72 Pulse Oximetry 95 Oxygen Delivery Me thod Room Air Oxygen Flow Rate 6 Fraction of Inspir ed Oxygen Hydration adequate: Yes Nausea and vomiting: No Pain level: 3 Mental status: Baseline
== END 2023-06-25 15:30 | disposition home or self-care (01) ==
PROVIDERS: Anesthesiology; PCP Family Medicine; Visit Provider Student in an Organized Health Care Education/Training Program
PROC: (CPT 29870; principal; 2023-06-25 11:30)
DX: M94.261 Chondromalacia, right knee (principal); M65.88 Other synovitis and tenosynovitis, other site; J44.9 Chronic obstructive pulmonary disease, unspecified; I10 Essential (primary) hypertension; F41.9 Anxiety disorder, unspecified; F32.A Depression, unspecified; Z79.82 Long term (current) use of aspirin; F17.200 Nicotine dependence, unspecified, uncomplicated
CPT/HCPCS: 29876; 36415; 80048; 81025; 84703; J0131; J1100; J1885; J2250; J2405; J2704; J2795; J3010; J3370; J7030

== ENCOUNTER 2023-07-29 11:50 | Outpatient (CLI) | payer MEDICAID, SELFPAY ==
--- NOTE | 2023-07-29 11:57 | US_ITS ---
WS: [id number] THYROID ULTRASOUND HISTORY: NECK SWELLING/SWALLOWING PROBLEM COMPARISON: None available. Right lobe: 1.6 cm x 1.5 cm x 4.5 cm (w x ap x l). Volume: 5.6 cm3. Normal size and echotexture. No significant are dominant nodules are present. Left lobe: 1.5 cm x 1.1 cm x 5.3 cm (w x ap x l). Volume: 4.4 cm3. Normal size and echotexture. No significant or dominant nodules are present. Isthmus: 0.1 cm. IMPRESSION: Normal thyroid ultrasound.
== END 2023-07-29 11:51 | disposition home or self-care (01) ==
PROVIDERS: PCP Family Medicine; Visit Provider Family Medicine
DX: R22.1 Localized swelling, mass and lump, neck (principal); R13.10 Dysphagia, unspecified
CPT/HCPCS: 76536

== ENCOUNTER 2023-09-08 15:03 | Outpatient (CLI) | payer MEDICAID, SELFPAY ==
--- NOTE | 2023-09-08 15:16 | MR_ITS ---
WS: [id number] MRI LUMBAR SPINE NONCONTRAST HISTORY: VERTEBROGENIC LOW BACK PAIN COMPARISON: None available. TECHNIQUE: Sagittal and axial multisequence imaging is submitted. Normal lumbar alignment with no compression fractures or marrow edema. Mild disc space narrowing and desiccation at L1-2. Conus terminates normally at L1-2 disc level. L1-L2: Mild annular disc bulge with a central shallow disc protrusion. There is mild encroachment upo n the subarticular recesses. No significant stenosis. L2-L3: Bilateral facet joint arthritis and ligamentum flavum hypertrophy. L3-L4: Mild bilateral facet joint arthritis. No stenosis L4-L5: Mild facet joint arthritis. No significant stenosis. There is very mild bilateral foraminal st enosis. L5-S1: Mild annular disc bulging and facet arthritis. Very mild bilateral foraminal stenosis. Paravertebral soft tissues are negative. IMPRESSION: 1. No high-grade central or foraminal stenosis. 2. Mild bilateral foraminal stenosis at L4-5 and L5-S1. 3. Mild annular disc bulge with a shallow central disc protrusion at L1-2. Mild subarticular recess e ncroachment.
== END 2023-09-08 15:04 | disposition home or self-care (01) ==
LOC: RAD 15:03
PROVIDERS: PCP Family Medicine; Visit Provider Anesthesiology Pain Medicine
DX: M48.07 Spinal stenosis, lumbosacral region (principal); M51.36 Other intervertebral disc degeneration, lumbar region
CPT/HCPCS: 72148